=== PATIENT | female | born 1955 | race Caucasian/White ===

== ENCOUNTER 2019-10-30 14:08 | Emergency (ER) | payer OTHER, MEDICAID, SELFPAY ==
[2019-10-30 14:41] VITALS: BP 186/79; PULSE 97; RESP 21; TEMP 37.2; O2SAT 98; BMI 31.0
[2019-10-30 15:08] LABS: Add Manual Diff / Slide Review NO; Basophils Absolute Auto 0 /uL (0-100); Basophils Percent Auto 0.3 % (0-2); Eosinophils Absolute Auto 0 /uL (0-450); Eosinophils Percent Auto 0.2 % (2-4); Hematocrit 40.1 % (36-46); Hemoglobin 14.1 g/dL (12.0-16.0); Lymphocytes Absolute Auto 1800 /uL (1100-4500); Lymphocytes Percent Auto 16.9 % (25-40); Mean Corpuscular HGB Conc 35.2 % (30-36); Mean Corpuscular Hemoglobin 29.7 PG (26-34); Mean Corpuscular Volume 84.4 fL (80-100); Monocytes Absolute Auto 1100 /uL (0-900); Neutrophils Absolute Auto 7700 /uL (1500-7000); Neutrophils Percent Auto 72.6 % (50-75); Platelet Count 294 X10^3/uL (150-400); Red Blood Cell Count 4.75 X10^6/uL (4.0-5.2); Red Cell Distribution Width 14.5 % (11.6-14.8); White Blood Cell Count 10.6 X10^3/uL (4.5-11.0)
[2019-10-30 15:14] LABS: INR 1.1 (0.9-1.3); Prothrombin Time 12.8 SECONDS (10.1-12.7)
[2019-10-30 15:16] LABS: PTT Partial Thromboplastin Tim 32 SECONDS (26.4-36.2)
--- NOTE | 2019-10-30 15:19 | PC.NURSE ---
Pt under observation by this ASSISTIVE TECHNOLOGY TRAINER. Pt was approached to change into safety scrubs but pt refused stating that she wanted to stay in her own clothes. JESSICA Leigh said that was ok for now. QIANA Parada going in to speak with pt after her case is reviewed.
[2019-10-30 15:25] LABS: Acetaminophen < 10 ug/mL (10-30); Alanine Aminotransferase 13 IU/L (<35); Albumin 4.4 g/dL (3.5-5.0); Alkaline Phosphatase 81 U/L (38-126); Aspartate Aminotransferase 27 IU/L (14-36); BUN Creatinine Ratio 6.9 (6-22); Bilirubin Total 1.1 mg/dL (0.2-1.3); Blood Urea Nitrogen 4 mg/dL (7-17); Calcium 9.7 mg/dL (8.4-10.2); Carbon Dioxide 29 mmol/L (22-32); Chloride 105 mmol/L (98-107); Creatine Kinase 100 U/L (30-135); Estimated Glomerular Filt Rate > 60.0 mL/min (>60); Ethanol (ETOH) < 10 mg/dL; Globulin 2.2 g/dL (1.7-4.1); Glucose 98 mg/dL (80-110); HEMOLYSIS < 15 (0-50); Potassium 3.4 mmol/L (3.4-5.1); Salicylate < 1.0 mg/dL (<20); Sodium 140 mmol/L (137-145); Total Protein 6.6 g/dL (6.3-8.2)
--- NOTE | 2019-10-30 15:32 | PC.NURSE ---
pt speaking with QIANA Parada
[2019-10-30 15:36] LABS: Troponin I < 0.012 ng/mL (0.01-0.034)
--- NOTE | 2019-10-30 15:45 | ED_ITS ---
HPI - Anxiety <Edna Leigh, COMMUNICATION LECTURER-BC - Last Filed: 10/30/19 21:41> General Chief Complaint: Anxiety Stated Complaint: Anxiety Time Seen by Provider: 10/30/19 14:18 Source: patient Mode of arrival: EMS Limitations: altered mental status History of Present Illness HPI narrative: The patient is a 64-year-old female former smoker who states she has a history of hypertension who presents to the emergency department by EMS. The patient was at a local casino, states she became very anxious when she went to the wrong coffee stand. She states that the workers at the coffee stand called EMS when she became very anxious and had difficulty expressing her words. She states that happens when she is having an anxiety attack. Patient denies any current thoughts of hurting herself or anybody else, but states she felt that way approximately 1-2 weeks ago. She denies any drug or alcohol use her states that she is having audio and visual hallucinations. She states she is hearing people talk, that she knows do not exist no other people cannot hear. She states that she is seeing lots of shadows moving around. The patient states that she is staying between [facility] and [place], and staying in a camper this time. During my interview she declines any pain, states that she feels a bit anxious and is worried about her housing situation. She tells nursing that she had some chest pain that has been going on for weeks. Chart review illustrate the patient had a very similar presentation to an outside hospital [facility], on October 22, 2019. She was brought in by a snow removing supervisor to that location after wandering around gas station and ?not making any sense.Records were obtained. The patient was brought to the outside facility to do a mental health exam where she was found having a difficult time answering questions and finding her words. She was clutching her chest at that time. She had an EKG done, basic lab work, head CT, and was eventually found to be hypothyroid. She tells me that she has a history of hypothyroidism. She is also noted to be hypokalemic and replaced at that facility. She was discharged home with her sister Laura, who per the emergency department visit note states that the patient has been in the area for 3 weeks and is at her baseline health and mentation. She was discharged home as she was deemed not a threat to herself or anybody else. Related Data Allergies Allergy/AdvReac Type Severity Reaction Status Date / Time No Known Drug Allergies Allergy Verified 10/30/19 14:41 Review of Systems <RENY Segal - Last Filed: 10/30/19 21:41> Review of Systems Narrative: Review of symptoms decreased by patient's mental condition GENERAL: Denies chills, fatigue, malaise, fever, sweats. HEENT: Denies sinus pain, ear pain, sore throat, difficulty swallowing, di zziness. RESPIRATORY: Denies dyspnea, cough, wheezing, hemoptysis, sputum. CARDIOVASCULAR: See HPI GASTROINTESTINAL: Denies nausea, vomiting, abdominal pain, diarrhea, constipation, melena. : Denies dysuria, frequency, incontinence, hematuria, urinary retention. MUSCULOSKELETAL: denies weakness, joint pain, or bony pain SKIN: Denies rash, skin lesions, or other NEUROLOGIC: See HPI PSYCHIATRIC: See HPI 12 point review of systems is negative except for those stated above Patient History <RENY Segal - Last Filed: 10/30/19 21:41> Social History Smoking Status: Former smoker Smoking Status: Former smoker alcohol intake frequency: holidays/special occasions only Substance Use Type: unknown Exam <ANDREIA SegalPVicky - Last Filed: 10/30/19 21:41> Narrative Exam Narrative: GENERAL: Unkempt elderly female in no acute distress, HEAD: Atraumatic. Normocephalic. No temporal or scalp tenderness. EYES: Pupils equal round and reactive. Extraocular motions intact. No scleral icterus. No injection or drainage. ENT: Nose without bleeding, purulent drainage or septal hematoma. Throat without erythema, tonsillar hypertrophy or exudate. Uvula midline. Airway patent. NECK: Trachea midline. No JVD or lymphadenopathy. Supple, nontender, no meningeal signs. CARDIOVASCULAR: Regular rate and rhythm RESPIRATORY: Clear to auscultation. Breath sounds equal bilaterally. No wheezes, rales, or rhonchi. No cough. No increased respiratory effort. No accessory muscle use. GASTROINTESTINAL: Abdomen soft, non-tender, nondistended. No hepato- splenomegaly, or palpable masses. No guarding. EXTREMITIES: No clubbing, cyanosis, or edema. No joint tenderness, effusion, or edema noted. BACK: Nontender without deformity or crepitance. No flank tenderness. NEURO: Alert, interactive, thought blocking and tangential SKIN: No rash or erythema. Initial Vital Signs Initial Vital Signs: Vital Signs Temperature 98.9 F 10/30/19 14:41 Pulse Rate 97 H 10/30/19 14:41 Respiratory Rate 21 10/30/19 14:41 Blood Pressure 186/79 H 10/30/19 14:41 Pulse Oximetry 98 10/30/19 14:41 <Mary Ojeda MD - Last Filed: 10/31/19 03:42> Initial Vital Signs Initial Vital Signs: Vital Signs Temperature 98.9 F 10/30/19 14:41 Pulse Rate 97 H 10/30/19 14:41 Respiratory Rate 21 10/30/19 14:41 Blood Pressure 186/79 H 10/30/19 14:41 Pulse Oximetry 98 10/30/19 14:41 Scores <BENSON Segal - Last Filed: 10/30/19 21:41> GCS [place] coma scale eye opening: Spontaneous Pb coma scale verbal response: Orientated Pb coma scale motor response: Obey commands [place] coma scale total score: 15 Course <BENSON Segal - Last Filed: 10/30/19 21:41> Orders Ordered: ED Orders 10/30/19 19:00 Troponin & CK Cardiac Panel Stat Reevaluation(s) Reevaluation #1: QIANA Parada in with patient. Sitter outside room. Time: 16:07 Vital Signs Vital signs: Vital Signs - 8 hr 10/30/19 14:41 10/30/19 18:34 Temperature 98.9 F Pulse Rate 97 H 102 H Respiratory Rate 21 18 Blood Pressure 186/79 H 182/87 H Pulse Oximetry 98 97 <Mary Ojeda MD - Last Filed: 10/31/19 03:42> Orders Ordered: ED Orders 10/30/19 19:00 Troponin & CK Cardiac Panel Stat Vital Signs Vital signs: Vital Signs - 8 hr 10/30/19 14:41 10/30/19 18:34 Temperature 98.9 F Pulse Rate 97 H 102 H Respiratory Rate 21 18 Blood Pressure 186/79 H 182/87 H Pulse Oximetry 98 97 MDM - Anxiety <BENSON Segal - Last Filed: 10/30/19 21:41> Lab Data Result diagrams: 10/30/19 14:56 10/30/19 14:56 Labs: Lab Results 10/30/19 10/30/19 10/30/19 Range/Units 14:56 14:56 14:56 WBC 10.6 (4.5-11.0) X10^3/uL RBC 4.75 (4.0-5.2) X10^6/uL Hgb 14.1 (12.0-16.0) g/dL Hct 40.1 (36-46) % MCV 84.4 (80-100) fL MCH 29.7 (26-34) PG MCHC 35.2 (30-36) % RDW 14.5 (11.6-14.8) % Plt Count 294 (150-400) X10^3/uL Neut % (Auto) 72.6 (50-75) % Lymph % (Auto) 16.9 L (25-40) % [place] % (Auto) 10.0 (3-14) % Eos % (Auto) 0.2 L (2-4) % Baso % (Auto) 0.3 (0-2) % Neut # (Auto) 7700 H (2787-4256) /uL Lymph # (Auto) 1800 (7637-4860) /uL [place] # (Auto) 1100 H (0-900) /uL Eos # (Auto) 0 (0-450) /uL Baso # (Auto) 0 (0-100) /uL PT (10.1-12.7) SECONDS INR (0.9-1.3) APTT (26.4-36.2) SECONDS Sodium 140 (137-145) mmol/L Potassium 3.4 (3.4-5.1) mmol/L Chloride 105 (98-107) mmol/L Carbon Dioxide 29 (22-32) mmol/L BUN 4 L (7-17) mg/dL Creatinine 0.58 (0.52-1.04) mg/dL Estimated GFR > 60.0 (>60) mL/min BUN/Creatinine Ratio 6.9 (6-22) Glucose 98 (80-110) mg/dL Calcium 9.7 (8.4-10.2) mg/dL Total Bilirubin 1.1 (0.2-1.3) mg/dL AST 27 (14-36) IU/L ALT 13 (<35) IU/L Alkaline Phosphatase 81 (38-126) U/L Total Creatine Kinase (30-135) U/L CK-MB (CK-2) CK-MB (CK-2) Rel Index Troponin I (0.01-0.034) ng/mL Total Protein 6.6 (6.3-8.2) g/dL Albumin 4.4 (3.5-5.0) g/dL Globulin 2.2 (1.7-4.1) g/dL Albumin/Globulin Ratio 2.0 (1.0-2.8) TSH < 0.015 L (0.47-4.68) uIU/mL Salicylates < 1.0 (<20) mg/dL Acetaminophen < 10 L (10-30) ug/mL Ethyl Alcohol < 10 ( - 10) mg/dL 10/30/19 10/30/19 10/30/19 Range/Units 14:56 14:56 19:00 WBC (4.5-11.0) X10^3/uL RBC (4.0-5.2) X10^6/uL Hgb (12.0-16.0) g/dL Hct (36-46) % MCV (80-100) fL MCH (26-34) PG MCHC (30-36) % RDW (11.6-14.8) % Plt Count (150-400) X10^3/uL Neut % (Auto) (50-75) % Lymph % (Auto) (25-40) % [place] % (Auto) (3-14) % Eos % (Auto) (2-4) % Baso % (Auto) (0-2) % Neut # (Auto) (5456-7368) /uL Lymph # (Auto) (8739-1224) /uL [place] # (Auto) (0-900) /uL Eos # (Auto) (0-450) /uL Baso # (Auto) (0-100) /uL PT 12.8 H (10.1-12.7) SECONDS INR 1.1 (0.9-1.3) APTT 32 (26.4-36.2) SECONDS Sodium (137-145) mmol/L Potassium (3.4-5.1) mmol/L Chloride (98-107) mmol/L Carbon Dioxide (22-32) mmol/L BUN (7-17) mg/dL Creatinine (0.52-1.04) mg/dL Estimated GFR (>60) mL/min BUN/Creatinine Ratio (6-22) Glucose (80-110) mg/dL Calcium (8.4-10.2) mg/dL Total Bilirubin (0.2-1.3) mg/dL AST (14-36) IU/L ALT (<35) IU/L Alkaline Phosphatase (38-126) U/L Total Creatine Kinase 100 88 (30-135) U/L CK-MB (CK-2) TNP TNP CK-MB (CK-2) Rel Index TNP TNP Troponin I < 0.012 < 0.012 (0.01-0.034) ng/mL Total Protein (6.3-8.2) g/dL Albumin (3.5-5.0) g/dL Globulin (1.7-4.1) g/dL Albumin/Globulin Ratio (1.0-2.8) TSH (0.47-4.68) uIU/mL Salicylates (<20) mg/dL Acetaminophen (10-30) ug/mL Ethyl Alcohol ( - 10) mg/dL ECG Data Attestation: I personally reviewed and interpreted this ECG as follows: Interpretation: Normal sinus rhythm. Ventricular 87. P.r. interval 166. viewed by Dr May DA SILVA Narrative Medical decision making narrative: The patient is a 64-year-old female with history of mental health issues who presents with a chief complaint of acute anxiety. She appears to be having some thought walking, hallucinations etcetera. She was seen and evaluated by Tal KIRAN who states that the patient is not gravely disabled at this point time. She is alert, oriented, does have thought blocking. However she is aware of her situation, states that she does not take her medications at home. She was given multiple opportunities for voluntary admission, which she repeatedly declined. She also declined to allow is to contact her family, were give her information to psychiatric facilities at this point time. I did discuss at length with her that she can come back to the emergency department at any point time. She did know to nursing that she had some chest pain prior to arrival for the past several weeks and troponin was negative, EKG was obtained, repeat troponin was negative. The patient has been alert, oriented though thought blocking throughout her stay in the emergency department. She has been cooperative, and did not give us consent to contact her sister or center information to a psychiatric facility. The patient throughout denies any thoughts of hurting herself or anybody else. Of note the patient's TSH was low, as it was previously at an outside facility. She was started on Synthroid, which I encouraged her to stop as this indicates that she is hyperthyroid. Discussed labs from outside facility and our labs with Dr. Ojeda to confirm. Tal SEWING DEPARTMENT SUPERVISOR and aTl patient's sitter on the site for a multiple offerings of voluntary admission, she would not accept voluntary admission. Patient would not allow us to call sister upon discharge. Did discuss at length that she is welcome to come back to emergency department at any point. <Mary Ojeda MD - Last Filed: 10/31/19 03:42> Lab Data Labs: Lab Results 10/30/19 10/30/19 10/30/19 Range/Units 14:56 14:56 14:56 WBC 10.6 (4.5-11.0) X10^3/uL RBC 4.75 (4.0-5.2) X10^6/uL Hgb 14.1 (12.0-16.0) g/dL Hct 40.1 (36-46) % MCV 84.4 (80-100) fL MCH 29.7 (26-34) PG MCHC 35.2 (30-36) % RDW 14.5 (11.6-14.8) % Plt Count 294 (150-400) X10^3/uL Neut % (Auto) 72.6 (50-75) % Lymph % (Auto) 16.9 L (25-40) % [place] % (Auto) 10.0 (3-14) % Eos % (Auto) 0.2 L (2-4) % Baso % (Auto) 0.3 (0-2) % Neut # (Auto) 7700 H (5339-3844) /uL Lymph # (Auto) 1800 (4908-6545) /uL [place] # (Auto) 1100 H (0-900) /uL Eos # (Auto) 0 (0-450) /uL Baso # (Auto) 0 (0-100) /uL PT (10.1-12.7) SECONDS INR (0.9-1.3) APTT (26.4-36.2) SECONDS Sodium 140 (137-145) mmol/L Potassium 3.4 (3.4-5.1) mmol/L Chloride 105 (98-107) mmol/L Carbon Dioxide 29 (22-32) mmol/L BUN 4 L (7-17) mg/dL Creatinine 0.58 (0.52-1.04) mg/dL Estimated GFR > 60.0 (>60) mL/min BUN/Creatinine Ratio 6.9 (6-22) Glucose 98 (80-110) mg/dL Calcium 9.7 (8.4-10.2) mg/dL Total Bilirubin 1.1 (0.2-1.3) mg/dL AST 27 (14-36) IU/L ALT 13 (<35) IU/L Alkaline Phosphatase 81 (38-126) U/L Total Creatine Kinase (30-135) U/L CK-MB (CK-2) CK-MB (CK-2) Rel Index Troponin I (0.01-0.034) ng/mL Total Protein 6.6 (6.3-8.2) g/dL Albumin 4.4 (3.5-5.0) g/dL Globulin 2.2 (1.7-4.1) g/dL Albumin/Globulin Ratio 2.0 (1.0-2.8) TSH < 0.015 L (0.47-4.68) uIU/mL Salicylates < 1.0 (<20) mg/dL Acetaminophen < 10 L (10-30) ug/mL Ethyl Alcohol < 10 ( - 10) mg/dL 10/30/19 10/30/19 10/30/19 Range/Units 14:56 14:56 19:00 WBC (4.5-11.0) X10^3/uL RBC (4.0-5.2) X10^6/uL Hgb (12.0-16.0) g/dL Hct (36-46) % MCV (80-100) fL MCH (26-34) PG MCHC (30-36) % RDW (11.6-14.8) % Plt Count (150-400) X10^3/uL Neut % (Auto) (50-75) % Lymph % (Auto) (25-40) % [place] % (Auto) (3-14) % Eos % (Auto) (2-4) % Baso % (Auto) (0-2) % Neut # (Auto) (3845-8462) /uL Lymph # (Auto) (1151-7502) /uL [place] # (Auto) (0-900) /uL Eos # (Auto) (0-450) /uL Baso # (Auto) (0-100) /uL PT 12.8 H (10.1-12.7) SECONDS INR 1.1 (0.9-1.3) APTT 32 (26.4-36.2) SECONDS Sodium (137-145) mmol/L Potassium (3.4-5.1) mmol/L Chloride (98-107) mmol/L Carbon Dioxide (22-32) mmol/L BUN (7-17) mg/dL Creatinine (0.52-1.04) mg/dL Estimated GFR (>60) mL/min BUN/Creatinine Ratio (6-22) Glucose (80-110) mg/dL Calcium (8.4-10.2) mg/dL Total Bilirubin (0.2-1.3) mg/dL AST (14-36) IU/L ALT (<35) IU/L Alkaline Phosphatase (38-126) U/L Total Creatine Kinase 100 88 (30-135) U/L CK-MB (CK-2) TNP TNP CK-MB (CK-2) Rel Index TNP TNP Troponin I < 0.012 < 0.012 (0.01-0.034) ng/mL Total Protein (6.3-8.2) g/dL Albumin (3.5-5.0) g/dL Globulin (1.7-4.1) g/dL Albumin/Globulin Ratio (1.0-2.8) TSH (0.47-4.68) uIU/mL Salicylates (<20) mg/dL Acetaminophen (10-30) ug/mL Ethyl Alcohol ( - 10) mg/dL Discharge Plan Departure Patient Disposition: Home Clinical Impression: Acute anxiety, Hallucination, Low TSH level Discharge Date/Time: 10/30/19 22:18 Instructions: Anxiety and Panic Attacks (Alternative Therapy), DI for Anxiety -- Adult, DI for Psychosis Activity Restrictions/Additional Instructions: Thank you for trusting us with your care today. As discussed, you have elected to not be voluntarily admitted at this point time. Remember that you are always welcome to come back to the emergency department if you change your mind. Please come back to the emergency department if you have any thoughts of hurting herself or anybody else. Please stop taking the Synthroid that was prescribed at the outside facility Please come back to the emergency department for any acute concerns Please follow-up with primary care provider, I gave you contact information to the [facility] human resources talent manager. They can help you find a primary care provider Referrals: [facility] Resources [Outside] <Mary Ojeda MD - Last Filed: 10/31/19 03:42> [facility]: I was immediately available in the department for consultation throughout this patient's visit. I agree with documentation as above. Mary Ojeda MD
[2019-10-30 15:56] LABS: Thyroid Stimulating Hormone < 0.015 uIU/mL (0.47-4.68)
--- NOTE | 2019-10-30 16:07 | PC.NURSE ---
pt refused to change into scrubs and requested a denial of care form. refused bedside glucose. prabhjot Bishop aware. kelsi carrasco at bedside
--- NOTE | 2019-10-30 16:12 | PC.NURSE ---
Shekhar Juárez on Pt 1:1 @ 1605. Pt is on kenny in speaking with CHIEF OF ANESTHESIOLOGY
--- NOTE | 2019-10-30 16:41 | PC.NURSE ---
Pt and travon discussing the use of writing down lists to help remembering to to stay on task, since the Pt thoughts are easily forgotten. BEVERAGE MANAGER is now in Rm with Pt.
--- NOTE | 2019-10-30 18:31 | CM.SWNOTE ---
CORPORATE LAW ASSISTANT assessment CORPORATE LAW ASSISTANT - Auto Wheel Alignment Specialist Assessment CORPORATE LAW ASSISTANT - Auto Wheel Alignment Specialist Assessment Start: 10/30/19 17:35 Freq: Status: Active Protocol: Document 10/30/19 17:35 CHARITY (Rec: 10/30/19 18:04 CHARITY [id number]) CORPORATE LAW ASSISTANT/Auto Wheel Alignment Specialist Assessment Time Spent with Patient Start date 10/30/19 Visit Start Time 15:20 End date 10/30/19 Visit End Time 17:30 Total time Care Management spent on 110 patient visit-in minutes Mental Health Screening Include Onset, Duration, Intensity Presenting Problem Patient presents to ED via EMS with complaints of feeling stuck, difficulty in speech finding the right words, anxiety, and trouble with memory/ follow through with basic tasks. Patient states she has been forgetting to take her medication. Precipitating Event(s) Patient presented to [facility] with similar concerns on 10/22/19. Patient has recently relocated from [place] to [place]. Patient states that onset of difficulty with memory was roughly 6 months ago and informs CORPORATE LAW ASSISTANT that her mother went into the hospital around this time, but does not provide further information. Current Behavioral Health Provider(s) Patient has not established a Include Facility, Provider, Ph. # counselor since relocating from [place]. Psych. Hx Mental Health and Chemical Patient has seen a counselor Dependency and psychiatrist in the past, and states she has been prescribed anti-depressants in the past. Patient states occasional alcohol use and states no other substance use. Family Hx of Behavioral Abuse None reported Psychiatric Hospitalizations (date(s)/ None reported. location) Support System(s) Patient mentions her sister as a support, her dog Seb, and a neighbor as a support. School/Work Patient is currently not working and not in school. Legal Concerns Legal Matters - Outstanding Issues none Mental Status Orientation (Person/Place/Time) Oriented to person and place. Unclear based on assessment if patient is oriented to current time. Affect Euthymic, slightly guarded, stable Thought Content - Specify/Describe Patient identifies experiencing Obsessions, Delusions, Hallucinations auditory and visual hallucinations during assessment. Patient states she does regularly experience auditory and visual hallucinations, but that she sometimes finds the experience to be magical. Patient describes fixation upon words, and informs CORPORATE LAW ASSISTANT that someone had used the word work earlier in the day, and she has been thinking about it since. Patient describes feeling like she is in a video game and describes feeling sometimes as though she is not in reality . Patient states she was driving the other day and took [her] hands off the steering wheel and states she didn't know why she did this, and explained that she felt like she had disconnected when she let go of the steering wheel. Thought Processes (Aavadtm-Jusaxkea-Sexe Thought blocking demonstrated Hfxsajiu-Lpzodmnv-Rogfctokal- regularly during assessment. Nmwvwkzkblatiw-Jaodzkh-Zrwruscmgijs- Patient did demonstrate some Thought Blocking) disorganized thinking and tangential thought processes during assessment. Speech (Hmcsar-Lung-Okbdsci-Rapid-Soft- Slow, with long pauses (10 Loud-Pressured) seconds +) before and during responses to CORPORATE LAW ASSISTANT questions. Motor (Ffixgi-Mwfknjdgp-[place]coa-Other) Slow Insight (Present-Partially Present- Partially present Impaired) Judgment (Intact-Impaired) Mostly intact. Impulse Control (Adequate-Impaired) Adequate Memory (Frzkhzxed-Pmrgdh-Qgeqkc, Immediate intact. Recent/ Impaired-Intact) remote impaired. Concentration (Intact-Impaired) Impaired Attention (Intact-Impaired) Impaired Behavior (Appropriate-Inappropriate) Appropriate. Additional Comment CORPORATE LAW ASSISTANT consulted with provider ELVIS Segal regarding patient's memory. Based on review of clinical records from 10/22/19 at [facility] which indicated no white matter deterioration in a CT scan, patient's full orientation, and presentation including potential trauma around onset of memory concerns and other features of psychosis, Edna Leigh informs CORPORATE LAW ASSISTANT that patient's presentation of memory concern is unlikely an indication of dementia and more likely related to the behavioral health features of patient's presentation. Risk Assessment Suicidal Ideation (Plan) No Homicidal Ideation (Plan) No Comment Patient denies SI/HI multiple times during assessment. Intervention Intervention CORPORATE LAW ASSISTANT consult requested for patient. Patient is a 64 y/o female who presents to ED via EMS with stated complaints of anxiety, difficulty with memory and focus, and difficulty in finding words. Patient reports she is currently living in her [facility] and moved from [place] to [place] roughly 4 weeks prior to today's visit . CORPORATE LAW ASSISTANT and patient discuss current symptoms. Patient informs CORPORATE LAW ASSISTANT that she has been experiencing difficulty with memory for roughly 6 months, with a significant escalation in the past week. Patient reports her mother went into the hospital roughly 6 months ago, and discusses that there was a significant, negative event that occurred at the place she was living during this time, but the memory is still foggy. Patient does disclose experiences of auditory, visual, and olfactory hallucinations during assessment. Patient reports feeling some detachment from people around her and states she feels like she is in a video game. Patient and CORPORATE LAW ASSISTANT discuss SI/HI. Patient denies both multiple times throughout assessment. Patient states she is having difficulty remembering to take her medication and has missed appointments, but is able to take care of all other ADLs without assistance. Patient requests assistance with focus and anxiety. CORPORATE LAW ASSISTANT and patient discuss inpatient hospitalization. Patient states she is interested, and identifies that she had a friend, that greatly benefited from inpatient hospitalization, but unsure if she is wanting to do this today. CORPORATE LAW ASSISTANT checks availability at [facility] and follows up with patient. Patient asks for time to consider going to [facility]. Based on patient's presentation today, it is the opinion of this CORPORATE LAW ASSISTANT that patient would benefit from voluntary inpatient hospitalization to address symptoms of psychosis. Based on today's assessment, patient does not meet criteria for ROBSON or DCR intervention. Plan RA Plan CORPORATE LAW ASSISTANT will follow up with patient and coordinate voluntary placement if patient willing and agreeable. CORPORATE LAW ASSISTANT will assist in coordination of safety plan if patient not agreeable to inpatient behavioral health hospitalization. QIANA Yusuf
[2019-10-30 18:34] VITALS: BP 182/87; PULSE 102; RESP 18; O2SAT 97
--- NOTE | 2019-10-30 18:45 | PC.NURSE ---
FRYER LINE HELPER in rm with Pt discussing options for treatment
[2019-10-30 19:24] LABS: Creatine Kinase 88 U/L (30-135)
[2019-10-30 19:37] LABS: Troponin I < 0.012 ng/mL (0.01-0.034)
--- NOTE | 2019-10-30 19:45 | PC.NURSE ---
MUSIC COORDINATOR in Rm with Pt
--- NOTE | 2019-10-30 20:59 | PC.NURSE ---
Pt is having a difficult time deciding about being discharged or going to in Pt tx.
--- NOTE | 2019-10-30 21:16 | PC.NURSE ---
Pt talking with CLOVIS HARDIN, Chris, FACE WORKER, about trying to make a decision to be admitted for in Pt Tx. Pt having a difficult time making the decision between being discharged and accepting Tx
--- NOTE | 2019-10-30 21:41 | PC.NURSE ---
Pt being discharged, Pt has picked up her belongings and is leaving. Pt redirected back to Rm to go over discharge paperwork
--- NOTE | 2019-10-30 21:47 | CM.SWNOTE ---
MARKET RESEARCH ASSOCIATE note After assessment, MARKET RESEARCH ASSOCIATE checks in with patient. Patient states she is not sure and needs more time to make descision. Between 1829 and 2129, MARKET RESEARCH ASSOCIATE, provider Edna Leigh, Patient travon Parada, and CLOVIS Lockwood, discuss options with patient. Patient is informed that she can choose to discharge or staff can support her in seeking inpatient treatment, but as there is currently no medical reason for her to stay in ED, patient cannot remain in ED. Patient repeatedly declines consent for MARKET RESEARCH ASSOCIATE to provide patient information to local [facility] hospitals and declines consent for MARKET RESEARCH ASSOCIATE to contact patient's sister to arrange ride. After lengthy discussion, patient expresses interest in going to treatment but declines to provide consent for hospital to arrange transfer of care. Patient is informed by Edna Leigh that she can always return to ED if she needs support or wants help accessing behavioral health hospitalization. Patient indicates understanding, but continues to debate whether she wants to go to the hospital. Pl: Patient to be discharged to home. Patient exited facility prior to MARKET RESEARCH ASSOCIATE being able to give patient resources for outpatient behavioral health services. QIANA Yusuf
== END 2019-10-30 22:18 | disposition home or self-care (01) ==
PROVIDERS: Emergency Provider Nurse Practitioner Family
DX: F41.9 Anxiety disorder, unspecified (principal); I10 Essential (primary) hypertension; R44.3 Hallucinations, unspecified; R79.89 Other specified abnormal findings of blood chemistry; R41.82 Altered mental status, unspecified
CPT/HCPCS: 36415; 80053; 80320; 80329; 82550; 84443; 84484; 85025; 85610; 85730; 93005; 99284; G0480